=== PATIENT | female | born 1950 | race Caucasian/White ===

== ENCOUNTER 2018-08-13 09:56 | Outpatient (CLI) | payer OTHER, MEDICARE, SELFPAY ==
[2018-08-13 14:09] LABS: Cholesterol 214 mg/dL (50-200); HDL Cholesterol 58 mg/dL (40-60); LDL CHOLESTEROL 138 mg/dL (<100); Triglyceride 72 mg/dL (30-150)
== END 2018-08-13 10:16 ==
PROVIDERS: PCP Internal Medicine; Visit Provider Internal Medicine
DX: E78.5 Hyperlipidemia, unspecified (principal)
CPT/HCPCS: 36415; 80061; 83721